=== PATIENT | female | born 1990 | race Caucasian/White ===

== ENCOUNTER 2019-05-20 10:59 | Emergency (ER) | payer MEDICAID ==
[~2019-05-20] VITALS: Ht 165.1 cm; Wt 79.5 kg
[2019-05-20 11:23] LABS: HEMATOCRIT 42.1 % (37.0-47.0); HEMOGLOBIN 13.9 g/dL (12.5-16.0); MEAN CELL VOLUME 88 fl (78-100); MEAN CORPUSCULAR HEMOGLOBIN 29 pg (27-31); MEAN CORPUSCULAR HGB CONC 33 g/dL (33-37); MEAN PLATELET VOLUME 10.4 fl (7.4-10.4); PLATELET COUNT 303 K/mm3 (130-400); RED CELL DISTRIBUTION WIDTH 12.8 % (11.5-14.5); WHITE BLOOD COUNT 8.1 K/mm3 (4.8-10.8)
[2019-05-20 11:32] LABS: POTASSIUM 3.9 mmol/L (3.5-5.1)
[2019-05-20 11:33] LABS: ALBUMIN 4.1 g/dL (3.5-5.0)
[2019-05-20 11:35] LABS: TOTAL PROTEIN 7.3 g/dL (6.4-8.3)
[2019-05-20 11:36] LABS: TOTAL BILIRUBIN 0.5 mg/dL (0.2-1.2)
[2019-05-20 11:37] LABS: BAND 2 % (0-10); LYMPHOCYTE 17 % (20-51); MONOCYTE 14 % (3-10); NEUTROPHILS 67 % (42-75)
[2019-05-20 11:48] LABS: D-DIMER 0.43 mg/L FEU (0.15-0.50)
[2019-05-20 12:34] LABS: PH-URINE 7.5 (5.0 - 8.0); URINE APPEARANCE CLEAR; URINE BILIRUBIN NEGATIVE (NEGATIVE); URINE BLOOD NEGATIVE (NEGATIVE); URINE COLOR YELLOW; URINE GLUCOSE NEGATIVE (NEGATIVE); URINE KETONE NEGATIVE (NEGATIVE); URINE LEUKOCYTE ESTERASE NEGATIVE (NEGATIVE); URINE NITRATE NEGATIVE (NEGATIVE); URINE PROTEIN(semi-quant) NEGATIVE (NEGATIVE); URINE UROBILINOGEN NORMAL (NORMAL)
[2019-05-20] MEDS ORDERED: ZITHROMAX Z PA250 MG PO (12:53)
[2019-05-20 13:18] VITALS: BP 96/58
== END 2019-05-20 13:10 | disposition home or self-care (01) ==
LOC: ED 10:59
PROVIDERS: Physician Assistant
DX: J20.8 Acute bronchitis due to other specified organisms (principal); F17.210 Nicotine dependence, cigarettes, uncomplicated; Z98.51 Tubal ligation status
CPT/HCPCS: J2930

== ENCOUNTER → 2020-07-05 | Outpatient (CLI) | payer MEDICAID ==
[~2020-07-05] MED LIST: ZITHROMAX Z PA250 MG PO
== END ==
LOC: RAD 09:00
DX: R10.11 Right upper quadrant pain (principal)

== ENCOUNTER → 2022-05-07 | Outpatient (CLI) | payer MEDICAID | LOC: RAD 10:00 | DX: N85.2 Hypertrophy of uterus (principal) ==

== ENCOUNTER 2023-07-21 13:59 | Emergency (ER) | payer MEDICAID ==
[~2023-07-21] VITALS: Ht 165.1 cm; Wt 65.9 kg
[2023-07-21] MEDS ORDERED: VYVANSE40 M1 PO (14:06)
[2023-07-21] MEDS ORDERED: CEPHALEXIN500 M1 PO (15:13)
[2023-07-21] MEDS ORDERED: NORCO 325 MG-51 TA1 PO (15:24)
[2023-07-21 15:50] VITALS: BP 122/68
== END 2023-07-21 15:46 | disposition home or self-care (01) ==
LOC: ED 13:59
DX: K08.89 Other specified disorders of teeth and supporting structures (principal)
CPT/HCPCS: J0595